=== PATIENT | female | born 1950 | race Caucasian/White ===

== ENCOUNTER → 2017-04-08 | Outpatient (CLI) | payer BC, OTHER ==
[2017-04-08 10:51] LABS: HEMATOCRIT 40.4 % (36.0-47.0); HEMOGLOBIN 13.4 g/dl (12.0-16.0); MEAN CORPUSCULAR HEMOGLOBIN 31.9 pg (27.0-33.0); MEAN CORPUSCULAR HGB CONC 33.2 g/dl (32.0-36.5); MEAN CORPUSCULAR VOLUME 96.2 fl (80.0-96.0); PLATELET COUNT, AUTOMATED 199 10^3/uL (150-450); RED CELL DISTRIBUTION WIDTH 12.7 % (11.5-14.5); WHITE BLOOD COUNT 5.5 10^3/uL (4.0-10.0)
[2017-04-08 10:55] LABS: APPEARANCE, URINE CLEAR (CLEAR); BACTERIA, URINE AUTO NEGATIVE (NEGATIVE); BILIRUBIN, URINE AUTO NEGATIVE (NEGATIVE); BLOOD, URINE BLOOD NEGATIVE (NEGATIVE); COLOR, URINE YELLOW (YELLOW); GLUCOSE, URINE (UA) AUTO NEGATIVE (NEGATIVE); KETONE, URINE AUTO NEGATIVE (NEGATIVE); LEUKOCYTE ESTERASE, URINE AUTO NEGATIVE (NEGATIVE); MUCUS, URINE SMALL (NEGATIVE); NITRITE, URINE AUTO NEGATIVE (NEGATIVE); PROTEIN, URINE AUTO NEGATIVE (NEGATIVE); RBC, URINE AUTO 2 /HPF (0-3); SPECIFIC GRAVITY URINE AUTO 1.015 (1.002-1.035); SQUAMOUS EPITHELIAL CELL UR AU 0 /HPF (0-6); UROBILINOGEN, URINE AUTO 0.2 mg/dL (0.0-2.0); WBC, URINE AUTO 1 /HPF (0-3)
[2017-04-08 11:00] LABS: INR 0.92; PROTHROMBIN TIME 12.4 SECONDS (12.4-14.5)
[2017-04-08 11:16] LABS: ALBUMIN 3.8 GM/DL (3.2-5.2); ALBUMIN/GLOBULIN RATIO 1.36 (1.00-1.93); ALKALINE PHOSPHATASE 70 U/L (45-117); ALT/SGPT 28 U/L (12-78); ANION GAP 6 MEQ/L (8-16); AST/SGOT 23 U/L (7-37); BILIRUBIN,TOTAL 0.4 MG/DL (0.2-1.0); BLOOD UREA NITROGEN 14 MG/DL (7-18); CALCIUM LEVEL 8.8 MG/DL (8.8-10.2); CARBON DIOXIDE LEVEL 29 MEQ/L (21-32); CHLORIDE LEVEL 108 MEQ/L (98-107); CREATININE FOR GFR 0.78 MG/DL (0.55-1.30); GLOMERULAR FILTRATION RATE > 60.0 (>45); GLUCOSE, FASTING 86 MG/DL (70-100); POTASSIUM SERUM 4.1 MEQ/L (3.5-5.1); SODIUM LEVEL 143 MEQ/L (136-145); TOTAL PROTEIN 6.6 GM/DL (6.4-8.2)
[2017-04-08 11:18] LABS: ERYTHROCYTE SEDIMENTATION RATE 7 mm/hr (0-30)
== END ==
LOC: M ADMPAT 09:15
DX: Z01.818 Encounter for other preprocedural examination (principal); M17.11 Unilateral primary osteoarthritis, right knee; Z86.73 Personal history of transient ischemic attack (TIA), and cerebral infarction without residual deficits
CPT/HCPCS: 71046

== ENCOUNTER 2017-04-22 09:32 | Inpatient (IN) | payer BC, OTHER ==
[2017-04-22] MEDS: buPROPion **XL** TABLET 150MG (WELLBUTRIN XL) PO ×2 (09:00→17:59)
[2017-04-22] MEDS: CALCIUM/VITAMIN D 500 MG TAB PO (09:00)
[2017-04-22] MEDS: VITAMIN D 1,000 INTERNATIONAL UNITS TABLET PO (09:00)
[2017-04-22] MEDS: MULTIVITAMINS/MINERALS THERAP 1 TAB PO (09:00)
[2017-04-22] MEDS ORDERED: LR 1,000 ML IV ×2 (10:00→14:00)
[2017-04-22] MEDS: LR 1,000 ML IV ×2 (10:20→14:00)
[2017-04-22] MEDS ORDERED: fentaNYL 100 MCG/2 ML INJECTION (J3010) As Ordered ×2 (10:52→12:36)
[2017-04-22] MEDS ORDERED: MIDAZOLAM INJ 2 MG/2 ML VIAL (J2250) As Ordered ×2 (10:52→12:36)
[2017-04-22] MEDS: MIDAZOLAM INJ 2 MG/2 ML VIAL (J2250) IV ×2 (11:00→11:11)
[2017-04-22] MEDS: fentaNYL 100 MCG/2 ML INJECTION (J3010) IV ×2 (11:00→11:11)
[2017-04-22] MEDS: CLINDAMYCIN 900 MG in APPROPRIATE DILUENT 1 EA IV ×2 (11:59→20:03)
[2017-04-22] MEDS ORDERED: PROPOFOL 200 MG/20 ML VIAL As Ordered ×2 (12:37→13:13)
[2017-04-22] MEDS ORDERED: LIDOCAINE 2% INJ 100 MG/5 ML SDV (FOR ANES.) As Ordered ×2 (12:37→13:13)
[2017-04-22] MEDS: BUPIVACAINE LIPOSOME/PF 1.3% 20 ML VIAL (13.3MG/ML)(EXPAREL) As Ordered (12:48)
[2017-04-22] MEDS: EPINEPHrine INJ 1 MG/ML 1ML AMP As Ordered (12:48)
[2017-04-22] MEDS: TRANEXAMIC ACID 100 MG/ML 10ML VIAL As Ordered (12:48)
[2017-04-22] MEDS: CLINDAMYCIN INJ 900MG/6ML VIAL As Ordered (12:49)
[2017-04-22] MEDS ORDERED: MEPERIDINE INJ 25 MG/ML VIAL (J2175) IV (14:00)
[2017-04-22] MEDS ORDERED: MORPHINE 1MG/ML IN 0.9% NACL 100ML IV BAG IV (14:00)
[2017-04-22] MEDS ORDERED: ACETAMINOPHEN TAB 650MG DOSE (2X325MG) PO (14:00)
[2017-04-22] MEDS ORDERED: PERCOCET 5MG/325MG TAB PO (14:00)
[2017-04-22] MEDS ORDERED: diphenhydrAMINE INJ 50MG/ML VIAL (J1200) IV (14:00)
[2017-04-22] MEDS ORDERED: fentaNYL 100 MCG/2 ML INJECTION (J3010) IV (14:00)
[2017-04-22] MEDS ORDERED: ONDANSETRON 4MG/2ML VIAL (J2405) IV ×3 (14:00)
[2017-04-22] MEDS ORDERED: METOCLOPRAMIDE INJ 10MG/2ML VIAL (J2765) IV (14:00)
[2017-04-22] MEDS ORDERED: NALBUPHINE HCL 10 MG/ML AMP (J2300) IV (14:00)
[2017-04-22] MEDS ORDERED: NALOXONE INJ 0.4 MG/1 ML VIAL (J2310) IV (14:00)
[2017-04-22] MEDS ORDERED: EPIDURAL/PCA KEYS XX (14:00)
[2017-04-22] MEDS ORDERED: FLEET ENEMA PR (14:00)
[2017-04-22] MEDS ORDERED: ROPIvacaine 0.5% 30 ML INJECTION (J2795 PER 1MG) (14:13)
[2017-04-22] MEDS ORDERED: EPINEPHrine INJ 1 MG/ML 1ML AMP (14:13)
[2017-04-22] MEDS ORDERED: diphenhydrAMINE 25 MG CAP PO (16:00)
[2017-04-22] MEDS: PERCOCET 5MG/325MG TAB PO ×2 (16:40→20:48)
[2017-04-22] MEDS: WARFARIN SOD 5 MG TAB PO (16:40)
[2017-04-22] MEDS: DIPYRIDAMOLE/ASA (AGGRENOX) 200MG/25MG CAPCR PO (17:59)
[2017-04-22] MEDS: SIMVASTATIN 20 MG TAB PO (20:02)
[2017-04-22] MEDS: ONDANSETRON 4 MG TAB (S0181) PO (20:51)
[2017-04-23] MEDS: PERCOCET 5MG/325MG TAB PO ×6 (00:48→22:53)
[2017-04-23] MEDS: CLINDAMYCIN 900 MG in APPROPRIATE DILUENT 1 EA IV (05:01)
[2017-04-23 07:39] LABS: HEMATOCRIT 30.9 % (36.0-47.0); HEMOGLOBIN 10.1 g/dl (12.0-16.0); MEAN CORPUSCULAR HEMOGLOBIN 31.5 pg (27.0-33.0); MEAN CORPUSCULAR HGB CONC 32.7 g/dl (32.0-36.5); MEAN CORPUSCULAR VOLUME 96.3 fl (80.0-96.0); PLATELET COUNT, AUTOMATED 194 10^3/uL (150-450); RED BLOOD COUNT 3.21 10^6/uL (4.00-5.40); RED CELL DISTRIBUTION WIDTH 13.1 % (11.5-14.5); WHITE BLOOD COUNT 6.7 10^3/uL (4.0-10.0)
[2017-04-23 07:47] LABS: INR 1.21; PROTHROMBIN TIME 15.6 SECONDS (12.4-14.5)
[2017-04-23 07:53] LABS: ANION GAP 5 MEQ/L (8-16); BLOOD UREA NITROGEN 10 MG/DL (7-18); CARBON DIOXIDE LEVEL 29 MEQ/L (21-32); CHLORIDE LEVEL 107 MEQ/L (98-107); CREATININE FOR GFR 0.66 MG/DL (0.55-1.30); GLOMERULAR FILTRATION RATE > 60.0 (>45); GLUCOSE, FASTING 127 MG/DL (70-100); POTASSIUM SERUM 4.3 MEQ/L (3.5-5.1); SODIUM LEVEL 141 MEQ/L (136-145)
[2017-04-23] MEDS: DIPYRIDAMOLE/ASA (AGGRENOX) 200MG/25MG CAPCR PO (09:13)
[2017-04-23] MEDS: ASPIRIN ENTERIC 325 MG TAB PO (09:13)
[2017-04-23] MEDS: SENOKOT S TAB PO ×2 (09:13→20:04)
[2017-04-23] MEDS: buPROPion **XL** TABLET 150MG (WELLBUTRIN XL) PO (09:13)
[2017-04-23] MEDS: CALCIUM/VITAMIN D 500 MG TAB PO (09:13)
[2017-04-23] MEDS: VITAMIN D 1,000 INTERNATIONAL UNITS TABLET PO (09:13)
[2017-04-23] MEDS: MULTIVITAMINS/MINERALS THERAP 1 TAB PO (09:13)
[2017-04-23] MEDS: ONDANSETRON 4 MG TAB (S0181) PO (09:13)
[2017-04-23] MEDS: MOM 30ML SUSPENSION UDC PO (09:13)
[2017-04-23] MEDS: MIRALAX *UNIT DOSE* 17GM PACKET PO (09:13)
[2017-04-23] MEDS: PHYTONADIONE 1.25 MG 1/4 TAB PO (10:06)
[2017-04-23] MEDS ORDERED: WARFARIN SOD 5 MG TAB PO (17:00)
[2017-04-23 18:23] LABS: HEMATOCRIT 31.1 % (36.0-47.0); HEMOGLOBIN 10.2 g/dl (12.0-16.0)
[2017-04-23] MEDS: SIMVASTATIN 20 MG TAB PO (20:04)
[2017-04-24] MEDS: PERCOCET 5MG/325MG TAB PO ×3 (03:51→12:10)
[2017-04-24 07:04] LABS: HEMATOCRIT 29.5 % (36.0-47.0); HEMOGLOBIN 9.8 g/dl (12.0-16.0); MEAN CORPUSCULAR HGB CONC 33.2 g/dl (32.0-36.5); MEAN CORPUSCULAR VOLUME 96.4 fl (80.0-96.0); PLATELET COUNT, AUTOMATED 184 10^3/uL (150-450); RED BLOOD COUNT 3.06 10^6/uL (4.00-5.40); RED CELL DISTRIBUTION WIDTH 13.2 % (11.5-14.5)
[2017-04-24 07:24] LABS: PROTHROMBIN TIME 15.4 SECONDS (12.4-14.5)
[2017-04-24] MEDS: MOM 30ML SUSPENSION UDC PO (07:58)
[2017-04-24] MEDS: ASPIRIN ENTERIC 325 MG TAB PO (07:58)
[2017-04-24] MEDS: MULTIVITAMINS/MINERALS THERAP 1 TAB PO (07:58)
[2017-04-24] MEDS: SENOKOT S TAB PO (07:58)
[2017-04-24] MEDS: MIRALAX *UNIT DOSE* 17GM PACKET PO (07:58)
[2017-04-24] MEDS: buPROPion **XL** TABLET 150MG (WELLBUTRIN XL) PO (07:59)
[2017-04-24] MEDS: VITAMIN D 1,000 INTERNATIONAL UNITS TABLET PO (07:59)
[2017-04-24] MEDS: CALCIUM/VITAMIN D 500 MG TAB PO (08:00)
[2017-04-24] MEDS: DIPYRIDAMOLE/ASA (AGGRENOX) 200MG/25MG CAPCR PO (08:00)
== END 2017-04-24 12:25 | disposition home health service (06) | DRG 302 ==
LOC: M OR 09:32 → M MS5PR 14:55
PROC: 0SRC0J9 Replacement of Right Knee Joint with Synthetic Substitute, Cemented, Open Approach (ICD-10-PCS; principal; 2017-04-22 11:59)
DX: M17.11 Unilateral primary osteoarthritis, right knee (principal); I10 Essential (primary) hypertension; G47.33 Obstructive sleep apnea (adult) (pediatric); F32.9 Major depressive disorder, single episode, unspecified; Z96.652 Presence of left artificial knee joint; Z88.8 Allergy status to other drugs, medicaments and biological substances; Z79.899 Other long term (current) drug therapy; Z79.82 Long term (current) use of aspirin; Z86.73 Personal history of transient ischemic attack (TIA), and cerebral infarction without residual deficits; E78.5 Hyperlipidemia, unspecified